=== PATIENT | male | born 1970 | race Caucasian/White ===

== ENCOUNTER 2024-06-22 11:00 | Day surgery (SDC) | payer OTHER ==
[~2024-06-22] VITALS: Ht 157.5 cm; Wt 108.9 kg
[2024-06-22] MEDS ORDERED: fentaNYL citrate 0.05 MG/ML VIAL ONE (12:39)
[2024-06-22] MEDS ORDERED: LIDOCAINE 2% 100 MG/5 ML UJET TP ONE (12:39)
[2024-06-22] MEDS: fentaNYL citrate 0.05 MG/ML VIAL IVP ONE (13:00)
== END 2024-06-22 14:05 | disposition home or self-care (01) ==
LOC: MDS 11:00 → MMU 11:16 → MDS 14:05
PROVIDERS: ATTEND Internal Medicine Gastroenterology
DX: R19.5 Other fecal abnormalities (principal); K63.5 Polyp of colon; I10 Essential (primary) hypertension; E78.5 Hyperlipidemia, unspecified; E11.9 Type 2 diabetes mellitus without complications; Z79.82 Long term (current) use of aspirin; Z79.899 Other long term (current) drug therapy; Z98.890 Other specified postprocedural states
CPT/HCPCS: 45385; 82948; J3010